=== PATIENT | female | born 1985 | race Caucasian/White ===

== ENCOUNTER 2020-02-03 08:12 | Emergency (ER) | payer OTHER, SELFPAY ==
[2020-02-03 08:16] VITALS: BP 131/77; PULSE 63; RESP 19; TEMP 36.4; O2SAT 99
--- NOTE | 2020-02-03 08:36 | ED.ABDPAIN ---
HPI - Abdominal Pain General Chief Complaint: Abdominal Pain Stated Complaint: epigastric pain Time Seen by Provider: 02/03/20 08:29 History of Present Illness HPI narrative: Patient presents to the ED with severe epigastric pain since last night. She usually tries Tums or Rolaids. She tried to make herself vomit to see if that would help. She gauges the pain at 9 out of 10. The pain radiates to bilateral back. She denies any reflux or pancreatitis. Her grandmother has reflux. She smokes daily, and drinks alcohol weekly. She does not take daily medication. She denies medical problems. She has not had a surgery. MD elicited complaint: abdominal pain Pertinent past history: none Onset (ago): day(s) Pain Consistency: constant Location: epigastric Severity: severe Quality: sharp Radiation: back Exacerbating factors: nothing Relieving factors: nothing Related Data Home Medications Medication Instructions Recorded Confirmed venlafaxine mg PO 02/03/20 Allergies Allergy/AdvReac Type Severity Reaction Status Date / Time No Known Allergies Allergy Verified 02/03/20 08:20 Review of Systems Review of Systems: Narrative: CONSTITUTIONAL: Denies fever, chills, or sweats. EYES: Denies visual changes, redness, or discharge. ENT: Denies rhinorrhea, congestion, sore throat, or otalgia. CARDIOVASCULAR: Denies chest pain, palpitations, or edema. RESPIRATORY: Denies cough or dyspnea. GASTROINTESTINAL: She has abdominal pain, but not nausea, vomiting, or diarrhea. GENITOURINARY: Denies dysuria or hematuria. SKIN: Denies rash or itching. MUSCULOSKELETAL: Denies back pain, joint pain, or myalgia. NEUROLOGIC: Denies headache, numbness, or weakness. All systems reviewed & are unremarkable except as noted in HPI and below PMFSH Past Medical History Medical History Gastritis Smoking Surgical History Surgical History (Updated 02/03/20 @ 08:39 by Melly Toussaint MD) No pertinent past surgical history Social History Social History (Updated 02/03/20 @ 08:39 by Melly Toussaint MD) Smoking status: Current every day smoker Alcohol intake: current Gender identity (if verbalized by the patient): Female Exam Narrative: Exam Narrative: GENERAL: Well-appearing, well-nourished, and in no acute distress. HEAD: Normocephalic, atraumatic. EYES: PERRLA and EOMI. ENT: Nares clear, no rhinorrhea or epistaxis. Mucous membranes moist. NECK: Supple. CHEST: Clear to auscultation. No respiratory distress. HEART: Regular rate and rhythm. No murmur heard. Normal peripheral pulses. ABDOMEN: Soft, nontender, nondistended, normal active bowel sounds. EXTREMITIES: Normal range of motion. No edema. SKIN: Warm, dry, no rash. NEURO: No focal deficits. Alert and oriented x3. PSYCH: Normal mood and affect. Course Reevaluation(s) Reevaluation #1: The patient is feeling better, and laying on her side. She said the pain is down to a 4-5. She asked if she could have a lung CT for pleurisy. I told her the risk of radiation is too great and that is not the primary focus of this visit. She does have a primary care physician. I encouraged her to follow-up with the GI doctor, stop smoking and drinking alcohol, and take the Pepcid I prescribed. Date: 02/03/20 Time: 10:02 Vital Signs Vital signs: Vital Signs Temperature 97.5 F L 02/03/20 08:16 Pulse Rate 63 02/03/20 08:16 Respiratory Rate 19 02/03/20 08:16 Blood Pressure 131/77 02/03/20 08:16 Pulse Oximetry 99 02/03/20 08:16 Temperature 97.5 F L 02/03/20 08:16 Pulse Rate 63 02/03/20 08:16 Respiratory Rate 19 02/03/20 08:16 Blood Pressure 131/77 02/03/20 08:16 Pulse Oximetry 99 02/03/20 08:16 MDM - Abdominal Pain Medical Records Attestation: I reviewed the patient's medical records. Lab Data Attestation: I reviewed the patient's lab results. Result diagrams: 02/03/20 08:49 02/03/20 08:49 Labs: Lab Results
[2020-02-03] MEDS: BELLADONNA ALK/PHENOB ELIX 10 ML, MAG HYDROX/ALUMINUM HYD/SIMETH 30 ML, LIDOCAINE HCL 2... PO (08:46)
[2020-02-03] MEDS: FAMOTIDINE 20 MG TABLET PO (08:46)
[2020-02-03 09:00] LABS: Basophils Absolute Auto 0.1 K/mm3 (0.0-0.1); Basophils Percent Auto 0.7 % (0.2-1.2); Eosinophils Absolute Auto 0.1 K/mm3 (0-0.3); Eosinophils Percent Auto 0.7 % (0-4.4); Hematocrit 40.9 % (37.0-47.0); Hemoglobin 14.4 g/dL (12.0-15.0); Immature Granulocyte Absolute 0.06 K/mm3 (0.00-0.031); Immature Granulocyte Percent A 0.4 % (0-0.5); Lymphocytes Absolute Auto 1.55 K/mm3 (0.9-3.2); Lymphocytes Percent Auto 9.4 % (18.3-44.2); Mean Corpuscular HGB Conc 35.2 g/dl (32-36); Mean Corpuscular Hemoglobin 27.4 pg (26-34); Mean Corpuscular Volume 77.8 fl (80-100); Mean Platelet Volume 10.4 fl (7.4-10.4); Monocytes Absolute Auto 0.8 K/mm3 (0.1-0.6); Monocytes Percent Auto 4.6 % (2.6-8.5); Neutrophils Absolute Auto 13.9 K/mm3 (1.3-6.7); Neutrophils Percent Auto 84.2 % (45.5-73.1); Platelet Count Result 343 k/mm3 (150-375); Red Blood Count 5.26 M/mm3 (4.2-5.4); Red Cell Distribution Width 14.6 % (11.5-14.5); White Blood Count 16.4 K/mm3 (4.5-10.0)
[2020-02-03 09:13] LABS: Alanine Aminotransferase 18 U/L (4-35); Albumin Level 4.5 g/dL (3.5-5.1); Alkaline Phosphatase 85 U/L (38-126); Anion Gap 11.8 mmol/L (7-16); Aspartate Amino Transferase 21 U/L (14-36); Bilirubin,Total 0.4 mg/dL (0.2-1.3); Blood Urea Nitrogen 6 mg/dL (7-17); Calcium 9.4 mg/dL (8.4-10.2); Carbon Dioxide 25 mmol/L (22-30); Chloride 103 mmol/L (98-107); Estimated CRCL calculation 98 ml/min; Estimated Glomerular Filt Rate > 60; Glucose 123 mg/dL (65-105); Lipase 95 U/L (23-300); Potassium 3.8 mmol/L (3.4-5.0); Sodium 136 mmol/L (137-145)
== END 2020-02-03 10:29 | disposition home or self-care (01) ==
PROVIDERS: Emergency Provider Emergency Medicine; PCP Family Medicine
DX: K29.00 Acute gastritis without bleeding (principal); D72.829 Elevated white blood cell count, unspecified; F17.200 Nicotine dependence, unspecified, uncomplicated
CPT/HCPCS: 36415; 80053; 83690; 85025; 99283; A9270

== ENCOUNTER 2020-03-07 02:10 | Outpatient (CLI) | payer OTHER, SELFPAY ==
[2020-03-07 18:23] LABS: SARS-CoV-2 RNA PCR Negative
== END 2020-03-07 02:11 | disposition home or self-care (01) ==
LOC: ANHCOVIDDT 02:10
PROVIDERS: PCP Family Medicine; Visit Provider Internal Medicine Gastroenterology
DX: Z01.812 Encounter for preprocedural laboratory examination (principal); Z20.828 Contact with and (suspected) exposure to other viral communicable diseases
CPT/HCPCS: 87635; C9803; U0003

== ENCOUNTER 2020-03-09 01:19 | Day surgery (SDC) | payer OTHER, SELFPAY ==
[2020-02-24 14:02] VITALS: BMI 28.3
[2020-03-09 07:54] VITALS: BMI 28.5
[2020-03-09 07:56] VITALS: BP 112/89; PULSE 91; RESP 18; TEMP 36.4; O2SAT 97
--- NOTE | 2020-03-09 08:03 | PM.IMHP ---
H&P: HPI History of Present Illness Date/Time: 03/09/20 08:03 Chief complaint: epigastric pain Narrative: Reason for visit EGD. This very pleasant lady seen in consultation at the request of her primary physician. Impression: Here is a very pleasant lady with epigastric abdominal pain. Evaluate for underlying peptic ulcer disease. The pain may be due to underlying dyspepsia. Anxiety and depression. Recommendation: EGD. History: This very pleasant lady's being evaluated for abdominal pain. For the last several months she has epigastric abdominal pain. She describes aching type pain that sometimes radiates over the entire abdomen. The pain is unaffected by eating or defecation. She does awaken occasionally nocturnal with the pain. Nausea, vomiting, hematemesis, dysphagia, indigestion operative night. Pantoprazole and famotidine seem to help the pain somewhat. Hematochezia, melena acholic stools at night. She takes NSAIDs occasionally. The patient is here for EGD. Patient does have episodes of palpitations. She has atypical chest burning. She occasionally has paresthesias down the left arm. Physical examination: General: very pleasant patient in no acute distress. HEENT: Head was normocephalic sclerae is clear mouth without masses neck was supple. Heart: Rate rhythm regular without S3 or S4. Lungs: CTA. Abdomen: Soft with no guarding or rigidity. Bowel sounds were active. Neurologic: Cranial nerves 2 through 12 intact. No focal defects. No clonus. Musculoskeletal system: Revealed no joint tenderness or swelling no muscle atrophy. Extremities: Reveal no significant edema. Skin: Warm and dry with normal turgor. Mental status: intact. Patient is alert and oriented. Review of Systems Review of Systems: All systems reviewed & are unremarkable except as noted in HPI and below [facility] Surgical History Surgical History (Updated 02/03/20 @ 08:39 by Melly Toussaint MD) No pertinent past surgical history Social History Social History (Updated 02/03/20 @ 08:39 by Melly Toussaint MD) Smoking status: Current every day smoker Alcohol intake: current Gender identity (if verbalized by the patient): Female Meds Home Medications and Allergies Home Medications Medication Instructions Recorded Confirmed Type famotidine [Pepcid] 20 mg PO DAILY #30 tablet 02/03/20 02/24/20 Rx venlafaxine mg PO 02/03/20 History pantoprazole 40 mg PO QAM 02/24/20 02/24/20 History Allergies Allergy/AdvReac Type Severity Reaction Status Date / Time No Known Allergies Allergy Verified 03/09/20 07:44 Vital Signs Vital Signs - 24 hr 03/09/20 07:56 Temperature 36.4 C Pulse Rate 91 Respiratory Rate 18 Blood Pressure 112/89 Pulse Oximetry 97
[2020-03-09] MEDS: LACTATED RINGERS 1,000 ML 150 ML IV CONT (08:04)
--- NOTE | 2020-03-09 08:20 | WPDANESEPPF ---
Anes - Initial Pre Proc Eval Procedure: Operation Date: 03/09/20 08:30 Proposed Procedures p Esophagogastroduodenoscopy - Burton Bliss DO Date/Time: 03/09/20 08:20 Surgeon: Burton Bliss DO Pre Op Diagnosis: epigastric pain Patient Data Age: 34 Gender: F Height: 5 ft 2 in Weight: 70.9 kg Last Vital Signs Temp 97.6 F 03/09/20 07:56 Pulse 91 03/09/20 07:56 Resp 18 03/09/20 07:56 BP 112/89 03/09/20 07:56 Pulse Ox 97 03/09/20 07:56 Allergies Allergy/AdvReac Type Severity Reaction Status Date / Time No Known Allergies Allergy Verified 03/09/20 07:44 Home Medications Medication Instructions Recorded Confirmed Type famotidine [Pepcid] 20 mg PO DAILY #30 tablet 02/03/20 02/24/20 Rx venlafaxine mg PO 02/03/20 History pantoprazole 40 mg PO QAM 02/24/20 02/24/20 History Patient hx anesthesia problems: none Family hx anesthesia problems: none [facility] Past Medical History Medical History Anxiety Gastritis Smoking Surgical History Surgical History (Updated 02/03/20 @ 08:39 by Melly Toussaint MD) No pertinent past surgical history Social History Social History (Updated 02/03/20 @ 08:39 by Melly Toussaint MD) Smoking status: Current every day smoker Alcohol intake: current Gender identity (if verbalized by the patient): Female Anes - Eval Final PreProcedure Day of Procedure 03/09/20 08:20 Patient weight: normal Heart: regular rate and rhythm Lungs: clear to auscultation Airway: Mallampati scale class II Neurological: alert and oriented Last oral intake: >/= 8 hours ASA classification: II Emergent: no Anesthetic plan: proceed Anesthesia type and monitoring: general GIVS and standard monitoring Informed Consent: The patient's anesthetic plan and its attendant risks and benefits were discussed with the patient/family/POA. Questions were solicited and answers provided to the satisfaction of the patient/family/POA.
[2020-03-09 08:56] VITALS: BP 95/61; PULSE 75; RESP 22; O2SAT 97
[2020-03-09 09:06] VITALS: BP 99/61; PULSE 72; RESP 22; O2SAT 97
[2020-03-09 09:16] VITALS: BP 106/62; PULSE 80; RESP 19; O2SAT 99
== END 2020-03-09 09:31 | disposition home or self-care (01) ==
PROVIDERS: PCP Family Medicine; Visit Provider Internal Medicine Gastroenterology
PROC: 0DJ08ZZ Inspection of Upper Intestinal Tract, Via Natural or Artificial Opening Endoscopic (ICD-10-PCS; CPT 43235; principal; 2020-03-09 08:30)
DX: R10.13 Epigastric pain (principal); K29.70 Gastritis, unspecified, without bleeding; K44.9 Diaphragmatic hernia without obstruction or gangrene; F17.210 Nicotine dependence, cigarettes, uncomplicated
CPT/HCPCS: 43239; 87081; 88305; J2704; J7120

== ENCOUNTER 2020-05-24 07:52 | Outpatient (CLI) | payer OTHER, SELFPAY ==
--- NOTE | ~2020-05-24 | NM_ITS ---
EXAMINATION: NM hepatobiliary w pharm DATE: 05/24/2020 10:59 INDICATION: Right upper quadrant abdominal pain. COMPARISON: Chest CT 05/24/2020 TECHNIQUE: 4.7 mCi Tc-99m mebrofenin (Choletec) was administered intravenously. Scintigraphic images of the abdomen were obtained for one hour. Then, 1.4 mcg sincalide (Kinevac) IV was administered, an d imaging was continued for 30 minutes. FINDINGS: There is normal clearance of radiotracer from the blood pool. There is homogeneous tracer u ptake by the liver. Activity progresses to the bowel and gallbladder. Gallbladder ejection fraction (GBEF) was 55%. Note that most patients with gallbladder dysfunction have GBEF < 35%, which overlaps with the broad normal range of 10-90%. IMPRESSION: 1. Normal hepatobiliary scintigraphy. Reviewed, dictated and finalized at location B. [employer]
--- NOTE | ~2020-05-24 | CT_ITS ---
EXAMINATION: CT chest wo con EXAM DATE: 05/24/2020 10:14 INDICATION: Chest wall pain, shortness of breath . Follow-up on pulmonary nodule. TECHNIQUE: Spiral CT of the chest without contrast. Axial, coronal and sagittal images were reviewe d. Coronal maximum intensity pixel images of chest reviewed. The dose-length product (DLP) for this examination was 158.26 mGy-cm. The exposure was tailored according to patient size (auto mA exposur e control), and iterative reconstruction (ASIR) was used as additional dose reduction technique. The re is no prior study for comparison. FINDINGS: There is a 7 mm left upper lobe nodule. A subsegmental pulmonary artery extends directly i nto this. Reportedly this study is follow-up for pulmonary nodule, should be directly compared to neeru or exam which demonstrated. Otherwise follow-up low dose noncontrast chest CT at 6-12 months. The lungs are otherwise clear. There are no pleural or pericardial effusions. Tracheobronchial tr ee is patent. There is no mediastinal, hilar or axillary lymphadenopathy. There is no pneumothora x. Heart normal in size. No evidence of coronary arterial calcification. Upper abdomen is unrema rkable. There is thoracic spondylosis without osteoblastic or osteolytic lesions identified. IMPRESSION: Left upper lobe 7 mm nodule; recommend comparing to prior study or consider 6-12 month fo llow-up CT. Reviewed, dictated and finalized at location A. [employer] IMPRESSION: Left upper lobe 7 mm nodule; recommend comparing to prior study or consider 6-12 month follow-up CT.
== END 2020-05-24 07:53 | disposition home or self-care (01) ==
PROVIDERS: PCP Family Medicine; Visit Provider Family Medicine
DX: R10.11 Right upper quadrant pain (principal); R91.1 Solitary pulmonary nodule
CPT/HCPCS: 71250; 78227; A9537; J2805

== ENCOUNTER 2021-01-31 01:55 | Day surgery (SDC) | payer BC, SELFPAY ==
[2021-01-18 09:22] VITALS: BMI 33.0
--- NOTE | 2021-01-30 10:35 | P.PNAN_ITS ---
Anes - Initial Pre Proc Eval Procedure: Operation Date: 01/31/21 09:30 Proposed Procedures p Esophagogastroduodenoscopy - Isaac Tom MD Date/Time: 01/30/21 10:35 Surgeon: Isaac Tom MD Pre Op Diagnosis: GERD Patient Data Age: 35 Gender: F Height: 1.57 m Weight: 82 kg Allergies Allergy/AdvReac Type Severity Reaction Status Date / Time No Known Allergies Allergy Verified 01/31/21 08:09 Home Medications Medication Instructions Recorded Confirmed Type omeprazole 20 mg PO DAILY 01/18/21 01/31/21 History spironolactone 100 mg PO DAILY 01/18/21 01/31/21 History thyroid (pork) [[place] Thyroid] 15 mg PO DAILY 01/18/21 01/31/21 History Patient hx anesthesia problems: none Family hx anesthesia problems: none [facility] Past Medical History Medical History Anxiety Gastritis Hypothyroidism Smoking Surgical History Surgical History (Updated 02/03/20 @ 08:39 by Melly Toussaint MD) No pertinent past surgical history Social History Social History (Updated 02/03/20 @ 08:39 by Melly Toussaint MD) Smoking packs per day: 0.5 Smoking cigarettes per day: 10.0 Years smoked: 10 Smoking pack-years: 5.00 Smoking status: Former smoker Tobacco type: cigarettes Alcohol intake: current Drinks per week: 12 Living arrangements: with family Gender identity (if verbalized by the patient): Female Spiritual care concerns: No Anes - Eval Final PreProcedure Day of Procedure 01/30/21 10:35 Patient weight: obese Heart: regular rate and rhythm Lungs: clear to auscultation and normal air movement Airway: Mallampati scale class II Neurological: alert and oriented Last oral intake: >/= 8 hours ASA classification: II Emergent: no Anesthetic plan: proceed Anesthesia type and monitoring: general GIVS and standard monitoring Informed Consent: The patient's anesthetic plan and its attendant risks and benefits were discussed with the patient/family/POA. Questions were solicited and answers provided to the satisfaction of the patient/family/POA.
[2021-01-31] MEDS: LACTATED RINGERS 1,000 ML 150 ML IV CONT (08:23)
[2021-01-31 08:31] VITALS: BP 113/74; PULSE 77; RESP 18; TEMP 36.1; O2SAT 99; BMI 32.5
--- NOTE | 2021-01-31 09:18 | PM.HPGS ---
History of Present Illness History of Present Illness Consent: Risks, benefits, and alternatives have been discussed and questions answered. Patient agrees to proceed with procedure. Chief complaint: GERD Narrative: Betty Burroughs is a 35 year old female with intermittent epigastric and gerd (will happen once a month lasting few hours and can be severe where she won't even able to work). EGD last year by Dr Bliss with small HH, mild gastritis and using omeprazole bid. Her doctor already prescribed pantoprazole instead. HIDA scan normal. Biopsies negative for celiac. Review of Systems Constitutional: Constitutional: Denies headache(s) and Denies weakness Eyes: Eyes: Denies blurry vision ENT: Reports Normal hearing present, Denies headache(s) and Denies neck pain Cardiovascular: Cardiovascular: Denies chest pain and Denies dyspnea Respiratory: Respiratory: Denies dyspnea Gastrointestinal: Gastrointestinal: Reports no additional gastrointestinal complaints Genitourinary: Genitourinary: Denies dysuria Musculoskeletal: Musculoskeletal: Denies neck pain Integumentary/Breasts: Skin/Breast: Denies dry skin Neurologic: Reports Normal hearing present, Denies headache(s) and Denies weakness Psychiatric: Psychiatric: Denies anxiety Endocrine: Endocrine: Denies change in body appearance Hematologic/Lymphatic: Hematologic/Lymphatic: Denies easy bleeding Allergic/Immunologic: Allergic/Immunologic: Denies urticaria PMFSH Past Medical History Medical History Anxiety Gastritis GERD (gastroesophageal reflux disease) Hypothyroidism Smoking Surgical History Surgical History (Updated 02/03/20 @ 08:39 by Melly Toussaint MD) No pertinent past surgical history Social History Social History (Updated 02/03/20 @ 08:39 by Melly Toussaint MD) Smoking packs per day: 0.5 Smoking cigarettes per day: 10.0 Years smoked: 10 Smoking pack-years: 5.00 Smoking status: Former smoker Tobacco type: cigarettes Alcohol intake: current Drinks per week: 12 Living arrangements: with family Gender identity (if verbalized by the patient): Female Spiritual care concerns: No Meds Home Medications and Allergies Home Medications Medication Instructions Recorded Confirmed Type omeprazole 20 mg PO DAILY 01/18/21 01/31/21 History spironolactone 100 mg PO DAILY 01/18/21 01/31/21 History thyroid (pork) [[place] Thyroid] 15 mg PO DAILY 01/18/21 01/31/21 History Allergies Allergy/AdvReac Type Severity Reaction Status Date / Time No Known Allergies Allergy Verified 01/31/21 08:09 Vital Signs Vital Signs - 24 hr 01/31/21 08:31 Temperature 97 F L Pulse Rate 77 Respiratory Rate 18 Blood Pressure 113/74 Pulse Oximetry 99 Exam Const: General: comfortable and no acute distress HENMT: General nose exam: Normal nares present Eyes: General: appearance normal, both eyes and all related structures Neck: Neck: no JVD Resp: Auscultation: clear to auscultation bilaterally Cardio: Rate: regular rate Rhythm: regular rhythm GI: Inspection: non-distended GI Palp: Yes Soft to palpation Skin: General skin exam: normal color Neuro: General: gait normal Speech: normal speech Extrem: General: normal to inspection Psych: Mental Status: mental status grossly normal Assessment and Plan Assessment and plan (1) GERD (gastroesophageal reflux disease): Code(s): K21.9 - Gastro-esophageal reflux disease without esophagitis Status: Acute Assessment and Plan: egd with bx, on ppi
[2021-01-31] MEDS: BENZOCAINE (*SP) 60 ML SPRAY CAN (HURRICAINE) 1 SPRAY MUCOUS MEM (09:29)
[2021-01-31 09:39] VITALS: BP 141/83; PULSE 90; RESP 22; O2SAT 100
[2021-01-31 09:49] VITALS: BP 104/73; PULSE 75; RESP 18; O2SAT 98
[2021-01-31 09:59] VITALS: BP 110/76; PULSE 64; RESP 20; O2SAT 100
== END 2021-01-31 10:06 | disposition home or self-care (01) ==
PROVIDERS: PCP Family Medicine; Visit Provider Internal Medicine Gastroenterology
PROC: 0DJ08ZZ Inspection of Upper Intestinal Tract, Via Natural or Artificial Opening Endoscopic (ICD-10-PCS; CPT 43235; principal; 2021-01-31 09:30)
DX: K21.00 Gastro-esophageal reflux disease with esophagitis, without bleeding (principal); K44.9 Diaphragmatic hernia without obstruction or gangrene; E03.9 Hypothyroidism, unspecified; F41.9 Anxiety disorder, unspecified; Z87.891 Personal history of nicotine dependence; E66.9 Obesity, unspecified; Z68.32 Body mass index [BMI] 32.0-32.9, adult
CPT/HCPCS: 43239; 88305; J2704; J7120